=== PATIENT | male | born 1955 | race Caucasian/White ===

== ENCOUNTER 2021-07-25 21:40 | Emergency (ER) | payer MEDICARE ==
[2021-07-25] MEDS ORDERED: Tamsulosin 0.4 MG Cap.ER PO ONE (22:09)
[2021-07-25] MEDS ORDERED: Ketorolac 30 MG/ML SDV IM ONE (22:09)
[2021-07-25] MEDS ORDERED: Morphine 2 MG/ML SYRINGE IM ONE (22:10)
[2021-07-25] MEDS ORDERED: Ondansetron 4 MG Tab.DIS ONE (22:21)
[2021-07-25] MEDS ORDERED: Ondansetron 4 MG Tab.DIS PO ONE (22:33)
[2021-07-25] MEDS ORDERED: Acetaminophen/oxyCODONE 325-5 MG Tab ONE (23:30)
== END 2021-07-25 23:50 | disposition home or self-care (01) ==
LOC: LB.ED 21:40
DX: N20.0 Calculus of kidney (principal); Z79.82 Long term (current) use of aspirin; Z79.899 Other long term (current) drug therapy; Z79.84 Long term (current) use of oral hypoglycemic drugs
CPT/HCPCS: 36415; 74176; 80048; 81001; 85025; 96372; 99284-25; A9270-GY; J1885; J2270; Q0162